=== PATIENT | male | born 1945 | race Caucasian/White ===

== ENCOUNTER → 2016-08-23 | Outpatient (CLI) | payer MEDICARE, OTHER ==
[~2016-08-23] MED LIST: ADVIL PM LIQUI1 EACH PO; CLONIDINE HYDR0.3 MG PO; LOSARTAN POTASS1 TA2 PO; MELOXICAM15 MG PO; OSTEO BI-FLEX1 EAC3 PO; SPIRONOLACTONE50 M1 PO
== END | disposition home or self-care (01) ==
LOC: EDSTATUS 09:28 → PT 09:51 → EDSTATUS 11:34 → PT 13:58 → EDSTATUS 14:00

== ENCOUNTER → 2016-09-27 | Outpatient (CLI) | payer MEDICARE, OTHER | LOC: RAD 07:39 | DX: Z09 Encounter for follow-up examination after completed treatment for conditions other than malignant neoplasm (principal); Z96.641 Presence of right artificial hip joint ==

== ENCOUNTER 2016-10-09 12:38 | Outpatient (RCR) | payer MEDICARE, OTHER | END 2016-10-25 08:33 | disposition home or self-care (01) | LOC: PT 12:38 | DX: Z47.1 Aftercare following joint replacement surgery (principal); Z96.641 Presence of right artificial hip joint; M16.11 Unilateral primary osteoarthritis, right hip ==

== ENCOUNTER 2016-10-24 13:22 | Inpatient (IN) | payer OTHER, MEDICARE ==
[2016-10-28 12:24] VITALS: BP 128/63
[2016-10-28 12:25] VITALS: BP 128/63
[2016-10-28] MEDS ORDERED: LOSARTAN POTASS1 TA2 PO (15:02)
[2016-10-28] MEDS ORDERED: SPIRONOLACTONE50 M1 PO (15:07)
[2016-10-28] MEDS ORDERED: MELOXICAM15 MG PO (15:08)
[2016-10-28] MEDS ORDERED: CLONIDINE HYDR0.3 MG PO (15:11)
[2016-10-28] MEDS ORDERED: OSTEO BI-FLEX1 EAC3 PO (15:12)
[2016-10-28] MEDS ORDERED: ADVIL PM LIQUI1 EACH PO (15:13)
[2016-10-28 16:10] VITALS: BP 134/61
[2016-10-28 18:26] VITALS: BP 127/63
[2016-10-29 06:13] VITALS: BP 130/78
[2016-10-29 18:24] VITALS: BP 110/74
[2016-10-30 06:22] VITALS: BP 131/67
[2016-10-30 18:32] VITALS: BP 118/61
== END 2016-10-30 19:12 | disposition home health service (06) | DRG 93 ==
LOC: MED/SURG 13:22
PROVIDERS: ADMIT Physician Assistant
DX: R26.0 Ataxic gait (principal); R53.1 Weakness; S27.321D Contusion of lung, unilateral, subsequent encounter; S22.41XD Multiple fractures of ribs, right side, subsequent encounter for fracture with routine healing; V43.92XD Unspecified car occupant injured in collision with other type car in traffic accident, subsequent encounter; Z87.891 Personal history of nicotine dependence; Z96.641 Presence of right artificial hip joint

== ENCOUNTER → 2017-01-03 | Outpatient (CLI) | payer MEDICARE, OTHER | LOC: RAD 08:34 | DX: Z09 Encounter for follow-up examination after completed treatment for conditions other than malignant neoplasm (principal); Z96.641 Presence of right artificial hip joint; M16.12 Unilateral primary osteoarthritis, left hip ==

== ENCOUNTER 2017-01-31 15:00 | Outpatient (RCR) | payer MEDICARE, OTHER | END 2017-02-06 13:23 | disposition home or self-care (01) | LOC: PT 15:00 | DX: Z47.1 Aftercare following joint replacement surgery (principal); Z96.641 Presence of right artificial hip joint ==

== ENCOUNTER → 2017-04-19 | Outpatient (CLI) | payer MEDICARE, OTHER | LOC: PT 13:00 | DX: Z01.818 Encounter for other preprocedural examination (principal) ==

== ENCOUNTER 2017-06-12 14:00 | Outpatient (RCR) | payer MEDICARE, OTHER | END 2017-06-12 14:30 | disposition home or self-care (01) | LOC: PT 14:00 | DX: Z47.1 Aftercare following joint replacement surgery (principal); Z96.642 Presence of left artificial hip joint | CPT/HCPCS: G8978-GP; G8979-GP ==

== ENCOUNTER → 2017-07-18 | Outpatient (CLI) | payer MEDICARE, OTHER | LOC: RAD 07-17 16:57 | DX: Z96.643 Presence of artificial hip joint, bilateral (principal); Z09 Encounter for follow-up examination after completed treatment for conditions other than malignant neoplasm; M47.816 Spondylosis without myelopathy or radiculopathy, lumbar region ==

== ENCOUNTER 2018-01-01 17:25 | Emergency (ER) | payer MEDICARE ==
[~2018-01-01] VITALS: Ht 162.6 cm; Wt 95.5 kg
[2018-01-01] MEDS ORDERED: ASPIRIN 32325 MG/TAB PO (17:39)
[2018-01-01 18:57] LABS: BUN/CREATININE RATIO 20.6 (6.0-26.0); CALCIUM 8.7 mg/dL (8.4-10.2); POTASSIUM 4.2 mmol/L (3.6-5.0)
[2018-01-01 19:00] LABS: HEMATOCRIT 44.5 % (42.0-52.0); HEMOGLOBIN 14.6 g/dL (13.5-18.0); MEAN CELL VOLUME 92 fl (78-100); MEAN CORPUSCULAR HEMOGLOBIN 30 pg (27-31); MEAN CORPUSCULAR HGB CONC 33 g/dL (33-37); MEAN PLATELET VOLUME 10.8 fl (7.4-10.4); PLATELET COUNT 263 K/mm3 (130-400); RED BLOOD COUNT 4.83 M/mm3 (4.20-5.60); RED CELL DISTRIBUTION WIDTH 13.5 % (11.5-14.5); WHITE BLOOD COUNT 14.4 K/mm3 (4.8-10.8)
[2018-01-01 19:21] LABS: LYMPHOCYTE 12 % (20-51); MONOCYTE 9 % (3-10); NEUTROPHILS 78 % (42-75)
[2018-01-01] MEDS ORDERED: CIPRO 500MG TA500 MG PO (19:59)
[2018-01-01] MEDS ORDERED: CLEOCIN HCL300 MG PO (20:00)
[2018-01-01 20:43] VITALS: BP 147/82
== END 2018-01-01 20:38 | disposition home or self-care (01) ==
LOC: ED 17:25
PROVIDERS: Nurse Practitioner Family
DX: L02.31 Cutaneous abscess of buttock (principal); L03.317 Cellulitis of buttock; I10 Essential (primary) hypertension; R00.0 Tachycardia, unspecified; Z95.2 Presence of prosthetic heart valve; Z96.643 Presence of artificial hip joint, bilateral; Z79.899 Other long term (current) drug therapy; Z79.82 Long term (current) use of aspirin
CPT/HCPCS: J0696; J3490; J7030

== ENCOUNTER 2019-02-09 15:06 | Emergency (ER) | payer MEDICARE ==
[~2019-02-09] VITALS: Wt 105.2 kg
[~2019-02-09 15:06] MED LIST changes: +ASPIRIN 32325 MG/TAB PO; +CIPRO 500MG TA500 MG PO; +CLEOCIN HCL300 MG PO
[2019-02-09 16:12] LABS: HEMATOCRIT 42.1 % (42.0-52.0); HEMOGLOBIN 13.7 g/dL (13.5-18.0); MEAN CELL VOLUME 93 fl (78-100); MEAN CORPUSCULAR HEMOGLOBIN 30 pg (27-31); MEAN CORPUSCULAR HGB CONC 33 g/dL (33-37); MEAN PLATELET VOLUME 11.2 fl (7.4-10.4); PLATELET COUNT 172 K/mm3 (130-400); RED BLOOD COUNT 4.51 M/mm3 (4.20-5.60); RED CELL DISTRIBUTION WIDTH 13.2 % (11.5-14.5); WHITE BLOOD COUNT 12.4 K/mm3 (4.8-10.8)
[2019-02-09 16:27] LABS: POTASSIUM 4.3 mmol/L (3.5-5.1); SODIUM 136 mmol/L (136-145)
[2019-02-09 16:28] LABS: CALCIUM 9.4 mg/dL (8.3-10.5); LYMPHOCYTE 2 % (20-51); MONOCYTE 7 % (3-10); NEUTROPHILS 89 % (42-75)
[2019-02-09] MEDS ORDERED: RT ALBUTEROL CC18 GM IH (16:28)
[2019-02-09 16:29] LABS: GLUCOSE 121 mg/dL (75-110)
[2019-02-09 16:30] LABS: CARBON DIOXIDE 24 mmol/L (23-31)
[2019-02-09 16:31] LABS: TOTAL BILIRUBIN 0.5 mg/dL (0.2-1.2)
[2019-02-09 16:33] LABS: URINE APPEARANCE CLEAR; URINE BILIRUBIN NEGATIVE (NEGATIVE); URINE BLOOD TRACE (NEGATIVE); URINE COLOR YELLOW; URINE GLUCOSE NEGATIVE (NEGATIVE); URINE KETONE NEGATIVE (NEGATIVE); URINE LEUKOCYTE ESTERASE NEGATIVE (NEGATIVE); URINE NITRATE NEGATIVE (NEGATIVE); URINE PROTEIN(semi-quant) NEGATIVE (NEGATIVE); URINE UROBILINOGEN NORMAL (NORMAL); URINE WBC 0-1 /hpf (0-3)
[2019-02-09 16:34] LABS: AST-SGOT 37 U/L (5-34)
[2019-02-09 16:35] LABS: ALT/SGPT 32 U/L (0-55)
[2019-02-09 16:36] LABS: ACETAMINOPHEN < 1 ug/mL
[2019-02-09 16:44] LABS: TROPONIN-I 0.12 ng/mL (<0.030)
[2019-02-09 16:47] VITALS: BP 140/79
[2019-02-09] MEDS ORDERED: CEPHALEXIN500 M2 PO (18:30)
== END 2019-02-09 20:10 | disposition home or self-care (01) ==
LOC: ED 15:06
PROVIDERS: Family Medicine
DX: L03.317 Cellulitis of buttock (principal); J44.9 Chronic obstructive pulmonary disease, unspecified; I10 Essential (primary) hypertension; F17.210 Nicotine dependence, cigarettes, uncomplicated; Z95.2 Presence of prosthetic heart valve
CPT/HCPCS: A4216; J0696; J7030

== ENCOUNTER 2019-02-12 10:43 | Emergency (ER) | payer MEDICARE ==
[~2019-02-12 10:43] MED LIST changes: +CEPHALEXIN500 M2 PO; +RT ALBUTEROL CC18 GM IH
[2019-02-12] MEDS ORDERED: MUPIROCIN CALCIUM2% TP (11:00)
[2019-02-12 11:19] LABS: EOS # 0.3 (0.04-0.40); EOS % 5.1 % (0.0-4.0); HEMATOCRIT 39.4 % (42.0-52.0); HEMOGLOBIN 12.6 g/dL (13.5-18.0); LYMPH# 1.3 (1.50-4.00); MEAN CELL VOLUME 95 fl (78-100); MEAN CORPUSCULAR HEMOGLOBIN 30 pg (27-31); MEAN CORPUSCULAR HGB CONC 32 g/dL (33-37); MEAN PLATELET VOLUME 10.3 fl (7.4-10.4); MONO # 0.6 (0.20-0.80); NEU # 3.5 (1.40-6.50); PLATELET COUNT 184 K/mm3 (130-400); RED BLOOD COUNT 4.15 M/mm3 (4.20-5.60); RED CELL DISTRIBUTION WIDTH 13.3 % (11.5-14.5); WHITE BLOOD COUNT 5.7 K/mm3 (4.8-10.8)
[2019-02-12 11:31] LABS: ALBUMIN 3.7 g/dL (3.4-4.8); POTASSIUM 4.4 mmol/L (3.5-5.1)
[2019-02-12 11:32] LABS: CALCIUM 8.8 mg/dL (8.3-10.5)
[2019-02-12 11:33] LABS: TOTAL PROTEIN 6.5 g/dL (6.2-8.1)
[2019-02-12 11:35] LABS: TOTAL BILIRUBIN 0.4 mg/dL (0.2-1.2)
[2019-02-12 11:58] VITALS: BP 140/87
== END 2019-02-12 12:02 | disposition home or self-care (01) ==
LOC: ED 10:43
PROVIDERS: Physician Assistant
DX: L03.317 Cellulitis of buttock (principal); I10 Essential (primary) hypertension; J44.9 Chronic obstructive pulmonary disease, unspecified; F17.210 Nicotine dependence, cigarettes, uncomplicated; Z96.649 Presence of unspecified artificial hip joint; Z96.659 Presence of unspecified artificial knee joint

== ENCOUNTER 2020-01-07 17:29 | Emergency (ER) | payer MEDICARE ==
[~2020-01-07] VITALS: Wt 98.0 kg
[~2020-01-07 17:29] MED LIST changes: +MUPIROCIN CALCIUM2% TP
[2020-01-07 18:32] LABS: HEMATOCRIT 41.9 % (42.0-52.0); HEMOGLOBIN 13.5 g/dL (13.5-18.0); MEAN CELL VOLUME 95 fl (78-100); MEAN CORPUSCULAR HEMOGLOBIN 31 pg (27-31); MEAN CORPUSCULAR HGB CONC 32 g/dL (33-37); MEAN PLATELET VOLUME 10.8 fl (7.4-10.4); PLATELET COUNT 175 K/mm3 (130-400); RED BLOOD COUNT 4.39 M/mm3 (4.20-5.60); RED CELL DISTRIBUTION WIDTH 13.1 % (11.5-14.5); WHITE BLOOD COUNT 13.8 K/mm3 (4.8-10.8)
[2020-01-07 18:38] LABS: ALBUMIN 4.1 g/dL (3.4-4.8); POTASSIUM 4.4 mmol/L (3.5-5.1); SODIUM 138 mmol/L (136-145)
[2020-01-07 18:39] LABS: CALCIUM 8.8 mg/dL (8.3-10.5)
[2020-01-07 18:41] LABS: GLUCOSE 109 mg/dL (75-110); TOTAL PROTEIN 6.8 g/dL (6.2-8.1)
[2020-01-07 18:42] LABS: CARBON DIOXIDE 25 mmol/L (23-31); TOTAL BILIRUBIN 0.7 mg/dL (0.2-1.2)
[2020-01-07 18:43] LABS: ALCOHOL IN-HOUSE < 10 mg/dL (<10); LYMPHOCYTE 6 % (20-51); MONOCYTE 8 % (3-10); NEUTROPHILS 83 % (42-75)
[2020-01-07 18:46] LABS: AST-SGOT 41 U/L (5-34)
[2020-01-07 18:47] LABS: ALT/SGPT 33 U/L (0-55)
[2020-01-07 18:51] LABS: D-DIMER 0.5 mg/L FEU (0.15-0.50)
[2020-01-07 18:53] LABS: TROPONIN-I < 0.03 ng/mL (<0.030)
[2020-01-07 18:57] LABS: URINE APPEARANCE CLEAR; URINE COLOR YELLOW
[2020-01-07 18:58] LABS: PH-URINE 5.5 (5.0 - 8.0); URINE BILIRUBIN NEGATIVE (NEGATIVE); URINE BLOOD TRACE (NEGATIVE); URINE GLUCOSE NEGATIVE (NEGATIVE); URINE KETONE NEGATIVE (NEGATIVE); URINE LEUKOCYTE ESTERASE NEGATIVE (NEGATIVE); URINE MUCUS PRESENT (NOT PRESENT); URINE NITRATE NEGATIVE (NEGATIVE); URINE PROTEIN(semi-quant) TRACE mg/dL (NEGATIVE); URINE UROBILINOGEN NORMAL (NORMAL)
[2020-01-07] MEDS ORDERED: ZITHROMAX500 M2 PO (19:33)
[2020-01-07] MEDS ORDERED: PROAIR HFA0.09 MG/AC IH (19:37)
[2020-01-07 20:18] VITALS: BP 173/104
== END 2020-01-07 20:18 | disposition home or self-care (01) ==
LOC: ED 17:29
PROVIDERS: Physician Assistant
DX: J18.9 Pneumonia, unspecified organism (principal); J44.0 Chronic obstructive pulmonary disease with (acute) lower respiratory infection; I10 Essential (primary) hypertension; Z20.828 Contact with and (suspected) exposure to other viral communicable diseases; Z95.2 Presence of prosthetic heart valve; Z96.651 Presence of right artificial knee joint; Z96.642 Presence of left artificial hip joint; Z88.8 Allergy status to other drugs, medicaments and biological substances
CPT/HCPCS: J0696; J7030